=== PATIENT | male | born 1965 | race Caucasian/White ===

== ENCOUNTER 2017-01-07 20:14 | Emergency (ER) | payer OTHER ==
--- NOTE | 2017-01-07 22:28 | EDPHY ---
H & P Time Seen by Provider: 01/07/17 20:34 HPI/ROS: CHIEF COMPLAINT: Splinter HISTORY OF PRESENT ILLNESS: 51-year-old male presents emergency department with a splinter under his right 4th fingernail. Tetanus is up-to-date, no other complaints. Smoking Status: Never smoked Physical Exam: GEN: Awake, alert, oriented, no acute distress RESP: nl resp effort MSK: Right 4th finger with full active flexion and extension SKIN: vertical splinter visible just under 4th fingernail Constitutional: Initial Vital Signs Temperature (C) 36.7 C 01/07/17 20:18 Heart Rate 77 01/07/17 20:18 Respiratory Rate 16 01/07/17 20:18 Blood Pressure 138/85 H 01/07/17 20:18 O2 Sat (%) 94 01/07/17 20:18 O2 Delivery Mode Room Air Allergies/Adverse Reactions: No Known Allergies Allergy (Unverified 01/07/17 20:18) Home Medications: Medication Instructions Recorded Allopurinol 01/07/17 MDM/Departure - MDM Procedures: Right 4th finger anesthetized with a digital block using 1% lidocaine without epinephrine, splinter was removed using splinter forceps - Depart Disposition: Home, Routine, Self-Care Clinical Impression: Splinter in skin Condition: Good Instructions: Acute Wounds (ED) Additional Instructions: Soak your finger in warm water 5 times a day for few days. Return to the emergency department for any signs of infection. Elevate, take 600 mg of ibuprofen every 8 hours with food as needed for pain. Referrals: DURGA GARRIDO [Primary Care Provider] - Follow Up Only If Needed
[2017-01-07 22:49] VITALS: BP 141/91; PULSE 93; RESP 20; TEMP 98.6; O2SAT 97
== END 2017-01-07 22:47 | disposition home or self-care (01) ==
PROC: 3E0T3BZ Introduction of Anesthetic Agent into Peripheral Nerves and Plexi, Percutaneous Approach (ICD-10-PCS; principal; 2017-01-07)
DX: S60.454A Superficial foreign body of right ring finger, initial encounter (principal); W45.8XXA Other foreign body or object entering through skin, initial encounter